=== PATIENT | male | born 1970 | race Two or more races ===

== ENCOUNTER 2024-11-25 09:15 | Day surgery (SDC) | payer BC, SELFPAY ==
[2024-11-24 10:08] VITALS: BMI 34.3
[2024-11-25] VITALS (9 sets, daily range): BP systolic 133–164; BP diastolic 79–103; PULSE 68–79; RESP 12–20; TEMP 36.6; O2SAT 94–99; BMI 34.0
[2024-11-25] MEDS: SODIUM CHLORIDE 0.9% 500 ML 500 ML 20 ML IV (12:08)
[2024-11-25] MEDS: fentaNYL CIT INJ 50 mCg/ML AMP 2ML (ASD USE ONLY) IVP (12:11)
[2024-11-25] MEDS: MIDAZOLAM INJ 1 MG/ML VIAL 2 ML (ASD USE ONLY) 2 MG IVP (12:11)
== END 2024-11-25 13:10 | disposition home or self-care (01) ==
PROVIDERS: PCP Family Medicine; Referring Provider Specialist; Visit Provider Specialist
PROC: 0DBE8ZX Excision of Large Intestine, Via Natural or Artificial Opening Endoscopic, Diagnostic (ICD-10-PCS; CPT 45380; principal; 2024-11-25 10:45)
DX: Z12.11 Encounter for screening for malignant neoplasm of colon (principal); D12.8 Benign neoplasm of rectum; K64.9 Unspecified hemorrhoids; K57.30 Diverticulosis of large intestine without perforation or abscess without bleeding
CPT/HCPCS: 45385; 45380; J1200; J2250; J3010; J7999